=== PATIENT | female | born 1985 | race Caucasian/White ===

== ENCOUNTER 2022-10-14 17:45 | Emergency (ER) | payer BC, SELFPAY ==
[2022-10-14 18:41] VITALS: BP 172/101; PULSE 86; RESP 18; TEMP 36.6; O2SAT 99; BMI 43.5
[2022-10-14 18:49] LABS: Influenza A, PCR Not Detected (NotDetected); Influenza B, PCR Not Detected (NotDetected)
[2022-10-14 19:00] VITALS: BP 191/98; PULSE 104; RESP 18; O2SAT 98
[2022-10-14 19:49] VITALS: BP 0/0; PULSE 80; RESP 17; TEMP 36.7; O2SAT 98
[2022-10-14 20:12] LABS: Coronavirus 19, PCR Detected (NotDetected)
--- NOTE | 2022-10-15 02:08 | PC.NURSE ---
s/w pt and gave results from rapid covid/flu test
== END 2022-10-14 19:55 | disposition left against medical advice (07) ==
LOC: ER 17:50
PROVIDERS: Emergency Provider Emergency Medicine; PCP Nurse Practitioner Family
DX: Z53.21 Procedure and treatment not carried out due to patient leaving prior to being seen by health care provider (principal)
CPT/HCPCS: C9803; U0003; U0005